=== PATIENT | female | born 1990 | race Caucasian/White ===

== ENCOUNTER → 2024-11-18 07:19 | Outpatient (REF) | payer OTHER, SELFPAY | LOC: PNTC 07:19 | PROVIDERS: ATTENDING PHYSICIAN Obstetrics & Gynecology | DX: O36.80X0 Pregnancy with inconclusive fetal viability, not applicable or unspecified (principal) | CPT/HCPCS: 36415; 76801; 76813 ==

== ENCOUNTER → 2025-01-20 07:04 | Outpatient (REF) | payer OTHER, SELFPAY | LOC: PNTC 07:04 | PROVIDERS: ATTENDING PHYSICIAN Obstetrics & Gynecology | DX: O99.280 Endocrine, nutritional and metabolic diseases complicating pregnancy, unspecified trimester (principal) | CPT/HCPCS: 76811; 76817 ==

== ENCOUNTER → 2025-04-27 07:35 | Outpatient (REF) | payer OTHER, SELFPAY | LOC: PNTC 07:35 | PROVIDERS: ATTENDING PHYSICIAN Obstetrics & Gynecology | DX: E06.3 Autoimmune thyroiditis (principal); O36.5990 Maternal care for other known or suspected poor fetal growth, unspecified trimester, not applicable or unspecified | CPT/HCPCS: 59025; 76816; 76820 ==

== ENCOUNTER → 2025-05-04 14:17 | Outpatient (REF) | payer OTHER, SELFPAY | LOC: PNTC 14:17 | PROVIDERS: ATTENDING PHYSICIAN Obstetrics & Gynecology | DX: O36.5990 Maternal care for other known or suspected poor fetal growth, unspecified trimester, not applicable or unspecified (principal) | CPT/HCPCS: 59025; 76815; 76820 ==

== ENCOUNTER → 2025-05-11 13:19 | Outpatient (REF) | payer OTHER, SELFPAY | LOC: PNTC 13:19 | PROVIDERS: ATTENDING PHYSICIAN Obstetrics & Gynecology | DX: O36.5990 Maternal care for other known or suspected poor fetal growth, unspecified trimester, not applicable or unspecified (principal) | CPT/HCPCS: 59025; 76818; 76820 ==

== ENCOUNTER → 2025-05-18 07:22 | Outpatient (REF) | payer OTHER, SELFPAY | LOC: PNTC 07:22 | PROVIDERS: ATTENDING PHYSICIAN Student in an Organized Health Care Education/Training Program | DX: O36.5990 Maternal care for other known or suspected poor fetal growth, unspecified trimester, not applicable or unspecified (principal) | CPT/HCPCS: 59025; 76816; 76820 ==

== ENCOUNTER 2025-05-20 19:23 | Inpatient (IN) | payer OTHER, SELFPAY ==
[2025-05-20 19:31] VITALS: BP 107/60; BMI 27.1
[2025-05-20] MEDS: CYTOTEC 25 MICROGRAM VAG (20:12)
[2025-05-20 20:27] LABS: Hematocrit 35.4 % (37.0-47.0); Hemoglobin 12.5 g/dL (12.0-16.0); Mean Corp Hgb Conc. 35.3 g/dL (33.0-37.0); Mean Corpuscular Volume 91.9 fL (81.0-99.0); Nucleated Red Blood Cells % 0 %; Platelet Count 231 10^3/uL (130-400); Red Cell Dist. Width 13.3 % (11.5-14.5)
[2025-05-20] MEDS: CYTOTEC 50 MICROGRAM PO (23:57)
[2025-05-21] MEDS: CYTOTEC 50 MICROGRAM PO ×2 (04:17→08:23)
[2025-05-21] MEDS: TUMS CHEWABLE TABLET 400 MG PO ×2 (04:23→20:07)
[2025-05-21] MEDS: STADOL 1 MG IV (04:23)
[2025-05-21] MEDS: ZOFRAN 4 MG IV ×2 (08:19→20:57)
[2025-05-21] MEDS: PINK BISMUTH 525 MG PO (09:38)
[2025-05-21] MEDS: LR 1000 IV (12:14)
[2025-05-21] MEDS: PITOCIN 30 UNITS/NSS 500 ML IV (12:14)
[2025-05-21] MEDS: SUBLIMAZE 100 MCG EPIDURAL (13:46)
[2025-05-21] MEDS: FENTANYL/BUPIVACAINE 100 EPIDURAL (13:46)
[2025-05-21] MEDS: CYTOTEC PO ×2 (16:38)
[2025-05-21] MEDS: COLACE 100 MG PO (19:51)
[2025-05-22] MEDS: MOTRIN 600 MG PO ×4 (00:19→21:33)
[2025-05-22 04:31] LABS: Hematocrit 33.1 % (37.0-47.0); Hemoglobin 11.4 g/dL (12.0-16.0)
[2025-05-22] MEDS: TYLENOL 650 MG PO ×4 (04:45→21:33)
[2025-05-22] MEDS: COLACE 100 MG PO ×2 (08:47→19:44)
[2025-05-22 12:46] LABS: Syphilis/T. pallidum Ab Reflex Negative (Negative)
[2025-05-23] MEDS: PINK BISMUTH 525 MG PO (03:45)
[2025-05-23] MEDS: TYLENOL 650 MG PO ×2 (03:48→12:58)
[2025-05-23] MEDS: MOTRIN 600 MG PO ×2 (03:48→12:58)
[2025-05-23] MEDS: COLACE 100 MG PO (08:01)
== END 2025-05-24 09:35 | disposition home or self-care (01) | DRG 807 ==
LOC: LDRP 19:23
PROVIDERS: Obstetrics & Gynecology; ADMITTING PHYSICIAN Obstetrics & Gynecology
PROC: 3E0P7VZ Introduction of Hormone into Female Reproductive, Via Natural or Artificial Opening (ICD-10-PCS; 2025-05-20)
PROC: 0HQ9XZZ Repair Perineum Skin, External Approach (ICD-10-PCS; 2025-05-21)
PROC: 10E0XZZ Delivery of Products of Conception, External Approach (ICD-10-PCS; 2025-05-21)
DX: O36.5930 Maternal care for other known or suspected poor fetal growth, third trimester, not applicable or unspecified (principal); Z37.0 Single live birth; O70.0 First degree perineal laceration during delivery; Z3A.38 38 weeks gestation of pregnancy
CPT/HCPCS: 85014; 85018; 85025; 86780; 86850; 86900; 86901; 88307